=== PATIENT | female | born 1955 | race Caucasian/White ===

== ENCOUNTER 2019-12-20 12:37 | Outpatient (CLI) | payer MEDICARE, OTHER, SELFPAY ==
--- NOTE | ~2019-12-20 | XR_ITS ---
XR chest 2V 12/20/2019 12:57 Indication: Cough and dyspnea. Chest pain. Procedure: 2 view chest Comparison: No prior studies for comparison. Findings: Heart size normal. Small right pleural effusion. No focal pneumonia, edema or pneumothorax. No acute osseous abnormality. There are cholecystectomy clips. Impression: 1: Small right pleural effusion. Reviewed, dictated and finalized at location A. Impression: 1: Small right pleural effusion.
== END 2019-12-20 12:38 | disposition home or self-care (01) ==
DX: R05 Cough (principal); R06.00 Dyspnea, unspecified; R07.9 Chest pain, unspecified; J90 Pleural effusion, not elsewhere classified
CPT/HCPCS: 71046